=== PATIENT | male | born 1995 | race African-American/Black ===

== ENCOUNTER 2020-11-20 13:35 | Emergency (ER) | payer SELFPAY ==
[~2020-11-20] VITALS: Ht 172.7 cm; Wt 108.9 kg
[2020-11-20 13:55] VITALS: BP 140/76
--- NOTE | 2020-11-20 14:31 | NUR ---
Patient discharged with v/s stable. Written and verbal after care instructions given and explained. Patient alert, oriented and verbalized understanding of instructions. Ambulatory with steady gait. All questions addressed prior to discharge. ID band removed. Patient advised to follow up with PMD. Rx of prednisone, triamcinolone acetonide given. Patient educated on indication of medication including possible reaction and side effects. Opportunity to ask questions provided and answered.
== END 2020-11-20 14:31 | disposition home or self-care (01) ==
LOC: MED 13:35
DX: T78.49XA Other allergy, initial encounter (principal); X58.XXXA Exposure to other specified factors, initial encounter
CPT/HCPCS: 99283